=== PATIENT | female | born 1995 | race Caucasian/White ===

== ENCOUNTER 2022-04-22 10:20 | Day surgery (SDC) | payer MEDICAID, SELFPAY ==
[2022-04-15 14:06] VITALS: BMI 21.7
[2022-04-16 12:51] VITALS: BMI 21.7
[2022-04-22] VITALS (7 sets, daily range): BP systolic 115–134; BP diastolic 74–93; PULSE 64–101; RESP 13–16; TEMP 36.2–36.6; O2SAT 99–100
[2022-04-22] MEDS: Lactated Ringers 1,000 ML 50 ML IVCONT (11:16)
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
--- NOTE | 2022-04-22 16:01 | HO.OPHTHAL ---
Ophthalmology Operative Note Date of Service: 04/22/22 Narrative: diagnosis right superior oblique palsy. Procedure right superior oblique tuck of [address] Wyman. Anesthesia general. Complications none. The patient was brought to the operating room placed under general anesthesia. The patient's right eye was prepped and draped in the usual sterile ophthalmic fashion. A lid speculum was placed in the eye and incision was made in the superior temporal fornix. The superior rectus muscle was hooked and the superior oblique carefully identified and grasped with a small tenotomy hook. he was transferred to the tendon Ludwig and a 6 mm tuck was temporarily tied with a Mersilene suture. Forced ductions revealed resistance to elevation in adduction as the inferior limbus cross the intercanthal line. The tendon was grasped with a small tenotomy hook and the tie was converted to a permanent type. Conjunctiva was closed with interrupted Vicryl sutures. The patient was then awoken from general anesthesia and discharged to postoperative recovery in good condition.
== END 2022-04-22 14:35 | disposition home or self-care (01) ==
PROVIDERS: PCP Nurse Practitioner Family; Visit Provider Ophthalmology
PROC: (CPT 67318; principal; 2022-04-22 11:50)
DX: H49.11 Fourth [trochlear] nerve palsy, right eye (principal); H53.2 Diplopia; H91.90 Unspecified hearing loss, unspecified ear; R47.01 Aphasia; R26.89 Other abnormalities of gait and mobility; Z87.820 Personal history of traumatic brain injury; Z86.718 Personal history of other venous thrombosis and embolism; Z79.899 Other long term (current) drug therapy; Z88.1 Allergy status to other antibiotic agents
CPT/HCPCS: 67318; J0461; J1100; J1885; J2250; J2405; J3010